=== PATIENT | female | born 1970 | race Caucasian/White ===

== ENCOUNTER 2024-01-13 06:44 | Emergency (ER) | payer BC, MEDICAID ==
[~2024-01-13] VITALS: Ht 167.6 cm; Wt 106.2 kg
[2024-01-13] MEDS ORDERED: NEO/5DRO7 RIGHTEYE (07:33)
[2024-01-13] MEDS: neomy sulf/polymyx B sulf/HC 7.5ml ophthalmic suspension RIGHTEYE ONE (08:05)
[2024-01-13 08:19] VITALS: BP 132/85; PULSE 75; RESP 15; TEMP 98.5; O2SAT 98
== END 2024-01-13 08:23 | disposition home or self-care (01) ==
LOC: ER 06:44
DX: S05.01XA Injury of conjunctiva and corneal abrasion without foreign body, right eye, initial encounter (principal); X58.XXXA Exposure to other specified factors, initial encounter; Y93.89 Activity, other specified; Y92.89 Other specified places as the place of occurrence of the external cause; Y99.8 Other external cause status; Z88.8 Allergy status to other drugs, medicaments and biological substances
CPT/HCPCS: 99284